=== PATIENT | female | born 1995 | race Two or more races ===

== ENCOUNTER 2022-07-08 18:31 | Emergency (ER) | payer OTHER ==
[~2022-07-08] VITALS: Ht 167.6 cm; Wt 52.2 kg
[2022-07-08] MEDS ORDERED: SPRINTEC 28 DA1 EACH PO (18:37)
== END 2022-07-08 22:03 | disposition home or self-care (01) ==
LOC: ER 18:31
DX: R10.2 Pelvic and perineal pain (principal)

== ENCOUNTER 2022-10-01 12:03 | Emergency (ER) | payer OTHER ==
[~2022-10-01] VITALS: Ht 167.6 cm; Wt 54.4 kg
[~2022-10-01 12:03] MED LIST: SPRINTEC 28 DA1 EACH PO
[2022-10-01] MEDS ORDERED: CLORAZEPATE D3.75 MG PO (12:11)
[2022-10-01] MEDS ORDERED: CITALOPRAM HBR10 MG PO (12:11)
[2022-10-01] MEDS ORDERED: FLONASE ALLERG9.9 ML NASAL (14:13)
[2022-10-01] MEDS ORDERED: ZYRTEC10 M3 PO (14:13)
[2022-10-01] MEDS ORDERED: SINUS RINSE ST1 EACH NASAL (14:13)
== END 2022-10-01 14:29 | disposition home or self-care (01) ==
LOC: ER 12:03
DX: J31.0 Chronic rhinitis (principal); R09.81 Nasal congestion; Z20.822 Contact with and (suspected) exposure to COVID-19

== ENCOUNTER 2025-05-21 16:02 | Emergency (ER) | payer OTHER ==
[~2025-05-21] VITALS: Ht 167.6 cm; Wt 52.2 kg
[~2025-05-21 16:02] MED LIST changes: +CITALOPRAM HBR10 MG PO; +CLORAZEPATE D3.75 MG PO; +FLONASE ALLERG9.9 ML NASAL; +SINUS RINSE ST1 EACH NASAL; +ZYRTEC10 M3 PO
[2025-05-21 17:39] VITALS: BP 114/68; O2SAT 100
== END 2025-05-21 18:11 | disposition home or self-care (01) ==
LOC: ER 16:03
DX: Z71.89 Other specified counseling (principal)